=== PATIENT | female | born 1945 | race Caucasian/White ===

== ENCOUNTER 2016-11-15 08:49 | Emergency (ER) | payer MEDICARE ==
[2016-11-15 09:08] VITALS: BMI 28.0
--- NOTE | 2016-11-15 10:27 | C.PDOC ---
History Of Present Illness 71 yr old female with PMHx of Rheumatoid Arthritis is on injectable medication, reports last time in July, presents to the ER stating her RA pain has flared up in the last week or so. Patient [place] and was only taking OTC Motrin or Tylenol. Patient reports pain in bilateral knees, hands, back and neck. Patient denies fever, chills, chest pain , SOB, nausea, vomiting, dysuria, incontinence, weakness or numbness. Time Seen by Provider: 11/15/16 09:12 Chief Complaint (Nursing): Flu-like Symptoms History Per: Patient History/Exam Limitations: no limitations Onset/Duration Of Symptoms: Days (Flared up in the last week) Current Symptoms Are (Timing): Still Present Sick Contacts (Context): None Past Medical History Reviewed: Historical Data, Nursing Documentation, Vital Signs Vital Signs: Last Vital Signs Temp 97.8 F 11/15/16 10:55 Pulse 75 11/15/16 10:55 Resp 18 11/15/16 10:55 BP 145/83 11/15/16 10:55 Pulse Ox 98 11/15/16 11:03 - Medical History PMH: Arthritis, Asthma, Cardia Arrhythmia (NO MEDS ?), HTN (NO MED), Hypercholesterolemia, Osteoporosis, Rheumatoid Arthritis - [facility] Procedures ENDOSC POLYPECTOMY OF LG INTEST (10/14/14) TU BLADDER CLEARANCE (03/11/13) Family History: States: No Known Family Hx - Social History Hx Tobacco Use: No Hx Alcohol Use: No Hx Substance Use: No - Immunization History Hx Tetanus Toxoid Vaccination: No Hx Influenza Vaccination: Yes ((05/2016)) Hx Pneumococcal Vaccination: Yes Review Of Systems Except As Marked, All Systems Reviewed And Found Negative. Constitutional: Negative for: Fever, Chills Cardiovascular: Negative for: Chest Pain Respiratory: Negative for: Shortness of Breath Gastrointestinal: Negative for: Nausea, Vomiting Genitourinary: Negative for: Dysuria, Incontinence Musculoskeletal: Positive for: Neck Pain, Back Pain, Hand Pain (Bilateral ), Other ((+) Bilateral knee pain. ) Neurological: Negative for: Weakness, Numbness Physical Exam - Physical Exam Appears: Non-toxic, No Acute Distress Skin: Warm, Dry, No Rash Head: Atraumatic, Normacephalic Oral Mucosa: Moist Neck: Normal, Normal ROM, Supple Chest: Symmetrical, No Tenderness Cardiovascular: Rhythm Regular, No Murmur Respiratory: Normal Breath Sounds, No Rales, No Rhonchi, No Stridor, No Wheezing Extremity: Normal ROM, Deformity (RA deformity to hands.), No Swelling Neurological/Psych: Oriented x3, Normal Speech, Normal Motor ED Course And Treatment O2 Sat by Pulse Oximetry: 98 Medical Decision Making Medical Decision Making: PLAN: * Prednisone PO * Toradol IM Disposition Counseled Patient/Family Regarding: Diagnosis, Need For Followup - Disposition Disposition: HOME/ ROUTINE Disposition Time: 10:27 Condition: GOOD Additional Instructions: Keep apt with you doctor next wk Prescriptions: Prednisolone Sod Phosphate [Prednisolone Sodium Phos Odt] 1 tab PO DAILY #30 tab.rapdis Instructions: Rheumatoid Arthritis (ED) Print Language: PASHTO - Clinical Impression Clinical Impression: Rheumatoid arthritis flare - Scribe Statement The provider has reviewed the documentation as recorded by the Varshaibe Juli Turner Provider Attestation: All medical record entries made by the Scribe were at my direction and personally dictated by me. I have reviewed the chart and agree that the record accurately reflects my personal performance of the history, physical exam, medical decision making, and the department course for this patient. I have also personally directed, reviewed, and agree with the discharge instructions and disposition.
[2016-11-15 10:56] VITALS: BP 145/83; PULSE 75; RESP 18; TEMP 97.8
[2016-11-15 11:01] VITALS: O2SAT 98
== END 2016-11-15 10:56 | disposition home or self-care (01) ==
LOC: C.ER 08:49
DX: M06.9 Rheumatoid arthritis, unspecified (principal)
CPT/HCPCS: 96372; 99284; J1885

== ENCOUNTER 2016-12-04 13:51 | Emergency (ER) | payer MEDICARE ==
[2016-12-04 13:51] VITALS: BMI 28.0
[2016-12-04 14:02] VITALS: TEMP 98.3
[2016-12-04] MEDS ORDERED: Dexamethasone 4 mg/1 ml ONE (14:15)
[2016-12-04 14:44] VITALS: BP 124/75; PULSE 82; RESP 18; O2SAT 98
--- NOTE | 2016-12-04 19:14 | C.PDOC ---
History Of Present Illness The patient, a 71 y/o female whose PMHx includes Rheumatoid Arthritis, presents to the ED for evaluation of pain and swelling to bilateral hands which began around 2 weeks ago. Patient states she last took pain medication (prescribed by PMD) 2 weeks ago. Otherwise, patient denies fever, chills, recent trauma/injury , extremity numbness/weakness. Chief Complaint (Nursing): Lower Extremity Problem/Injury History Per: Patient History/Exam Limitations: no limitations Onset/Duration Of Symptoms: Other (2 weeks ) Current Symptoms Are (Timing): Still Present Additional History Per: Patient Past Medical History Reviewed: Historical Data, Nursing Documentation, Vital Signs Vital Signs: Last Vital Signs Temp 98.3 F 12/04/16 14:00 Pulse 82 12/04/16 14:43 Resp 18 12/04/16 14:43 BP 124/75 12/04/16 14:43 Pulse Ox 98 12/04/16 19:17 - Medical History PMH: Arthritis, Osteoporosis, Rheumatoid Arthritis Denies: Asthma (PT DENIES), Cardia Arrhythmia (PT DENIES), HTN (PT DENIES), Hypercholesterolemia (PT DENIES), Chronic Kidney Disease Surgical History: No Surg Hx - [facility] Procedures ENDOSC POLYPECTOMY OF LG INTEST (10/14/14) TU BLADDER CLEARANCE (03/11/13) Family History: States: Unknown Family Hx - Social History Hx Tobacco Use: No Hx Alcohol Use: No Hx Substance Use: No - Immunization History Hx Tetanus Toxoid Vaccination: No Hx Influenza Vaccination: Yes ((05/2016)) Hx Pneumococcal Vaccination: Yes Review Of Systems Except As Marked, All Systems Reviewed And Found Negative. Constitutional: Negative for: Fever, Chills Musculoskeletal: Positive for: Other (pain and swelling to bilateral hands. no recent trauma/injury ) Neurological: Negative for: Weakness, Numbness Physical Exam - Physical Exam Appears: Non-toxic, No Acute Distress Skin: Normal Color, Warm, Dry Head: Atraumatic, Normacephalic Eye(s): bilateral: Normal Inspection, EOMI Oral Mucosa: Moist Neck: Normal ROM, Supple Chest: Symmetrical, No Deformity, No Tenderness Cardiovascular: Rhythm Regular, No Murmur Respiratory: Normal Breath Sounds, No Rales, No Rhonchi, No Wheezing Extremity: Normal ROM, Capillary Refill (less than 2 seconds ), No Deformity, Swelling (hands bilaterally ), Other (+chronic RA changes ) Pulses: Left Radial: Normal, Right Radial: Normal Neurological/Psych: Oriented x3, Normal Speech, Normal Cognition Gait: Steady ED Course And Treatment O2 Sat by Pulse Oximetry: 98 (on RA) Pulse Ox Interpretation: Normal Progress Note: Patient received Decadron IM and Toradol IM. Disposition - Disposition Referrals: Eduin Macias, [Non-Staff] - Disposition: HOME/ ROUTINE Disposition Time: 17:50 Condition: IMPROVED Additional Instructions: Thank you for letting us take care of you today. Your provider was Dr. Townsend. You were treated for pain from rheumatoid arthritis. The emergency medical care you received today was directed at your acute symptoms. If you were prescribed any medication, please fill it and take as directed. It may take several days for your symptoms to resolve. Return to the Emergency Department if your symptoms worsen, do not improve, or if you have any other problems. Please contact your doctor or call one of the physicians/clinics you have been referred to that are listed on the Patient Visit Information form that is included in your discharge packet. Bring any paperwork you were given at discharge with you along with any medications you are taking to your follow up visit. Our treatment cannot replace ongoing medical care by a primary care provider (PCP) outside of the emergency department. Thank you for allowing the [facility] team to be part of your care today. Follow up with your doctor in 3-4 days to be re-evaluated. Prescriptions: Ibuprofen [Motrin] 600 mg PO Q6 PRN #20 tab PRN Reason: Pain, Moderate (4-7) Instructions: Rheumatoid Arthritis (ED) Forms: Gen Discharge Inst [place] Print Language: SLOVENIAN - Clinical Impression Clinical Impression: Rheumatoid arthritis flare - Scribe Statement The provider has reviewed the documentation as recorded by the Scribe (Nikki Jones) Provider Attestation: All medical record entries made by the Scribe were at my direction and personally dictated by me. I have reviewed the chart and agree that the record accurately reflects my personal performance of the history, physical exam, medical decision making, and the department course for this patient. I have also personally directed, reviewed, and agree with the discharge instructions and disposition.
== END 2016-12-04 14:49 | disposition home or self-care (01) ==
LOC: C.ER 13:51
DX: M06.9 Rheumatoid arthritis, unspecified (principal)
CPT/HCPCS: 96372; 99284; J1100; J1885

== ENCOUNTER 2016-12-08 09:48 | Emergency (ER) | payer MEDICARE ==
[2016-12-08 09:48] VITALS: BMI 28.0
[2016-12-08 09:55] VITALS: O2SAT 99
--- NOTE | 2016-12-08 10:24 | C.PDOC ---
History Of Present Illness Patient is a 71 year old female who presents to the ER with a complaint of generalized body aches. Patient states she has a history of rheumatoid arthritis and takes medication for them however notes they have not been working lately. Patient reports it has gotten harder to walk. Denies any recent injury, fever, numbness, weakness, or trauma. Time Seen by Provider: 12/08/16 10:01 Chief Complaint (Nursing): Pain, Chronic History Per: Patient History/Exam Limitations: no limitations Current Symptoms Are (Timing): Still Present Past Medical History Reviewed: Historical Data, Nursing Documentation, Vital Signs Vital Signs: Last Vital Signs Temp 97.8 F 12/08/16 11:17 Pulse 79 12/08/16 11:17 Resp 16 12/08/16 11:17 BP 141/81 12/08/16 11:17 Pulse Ox 99 12/08/16 11:17 - Medical History PMH: Arthritis (Rheumatoid), Osteoporosis, Rheumatoid Arthritis - [facility] Procedures ENDOSC POLYPECTOMY OF LG INTEST (10/14/14) TU BLADDER CLEARANCE (03/11/13) Family History: States: No Known Family Hx - Social History Hx Tobacco Use: No Hx Alcohol Use: No Hx Substance Use: No - Immunization History Hx Tetanus Toxoid Vaccination: No Hx Influenza Vaccination: Yes ((05/2016)) Hx Pneumococcal Vaccination: Yes Review Of Systems Except As Marked, All Systems Reviewed And Found Negative. Musculoskeletal: Positive for: Other (Body aches) Physical Exam - Physical Exam Appears: Non-toxic Skin: Normal Color, Warm, Dry Head: Atraumatic, Normacephalic Eye(s): bilateral: Normal Inspection, PERRL, EOMI Oral Mucosa: Moist Neck: Normal ROM Chest: Symmetrical, No Tenderness Cardiovascular: Rhythm Regular, No Friction Rub, No Murmur Respiratory: Normal Breath Sounds, No Rales, No Rhonchi, Other (No acute respiratory distress, patient speaking in complete sentences) Gastrointestinal/Abdominal: Soft, No Tenderness Extremity: Swelling (bilateral hands, knees) Neurological/Psych: Oriented x3, Normal Speech, Normal Cognition, Normal Motor, Normal Sensation Gait: Steady ED Course And Treatment O2 Sat by Pulse Oximetry: 99 (Room air) Pulse Ox Interpretation: Normal Progress Note: Decadron and toradol IM will be administered. Disposition - Disposition Referrals: at [facility] [Outside] Juan Manuel Gutierrez MD [Staff Provider] - Disposition: HOME/ ROUTINE Disposition Time: 11:00 Condition: IMPROVED Additional Instructions: Follow up with the medical doctor within 1-2 days for possible Rheumatology referral. return if worsened. Prescriptions: Naproxen [Naprosyn] 500 mg PO BID #20 tab traMADol [Ultram] 50 mg PO Q6 PRN #20 tab PRN Reason: Pain predniSONE [Prednisone] 20 mg PO BID #10 tab Instructions: Rheumatoid Arthritis (DC) Print Language: ARMENIAN - Clinical Impression Clinical Impression: Rheumatoid arthritis flare - Scribe Statement The provider has reviewed the documentation as recorded by the Scribe Tereso Jennings All medical record entries made by the Scribe were at my direction and personally dictated by me. I have reviewed the chart and agree that the record accurately reflects my personal performance of the history, physical exam, medical decision making, and the department course for this patient. I have also personally directed, reviewed, and agree with the discharge instructions and disposition.
[2016-12-08] MEDS ORDERED: Dexamethasone 4 mg/1 ml ONE (10:51)
[2016-12-08 12:08] VITALS: BP 141/81; PULSE 79; RESP 16; TEMP 97.8
== END 2016-12-08 11:25 | disposition home or self-care (01) ==
LOC: C.ER 09:48
DX: M06.9 Rheumatoid arthritis, unspecified (principal)
CPT/HCPCS: 96372; 99284; J1100; J1885